=== PATIENT | female | born 2000 | race Caucasian/White ===

== ENCOUNTER 2021-02-25 03:11 | Emergency (ER) | payer OTHER ==
[~2021-02-25] VITALS: Ht 157.5 cm; Wt 81.7 kg
[2021-02-25] MEDS ORDERED: ONDANSETRON ODT8 MG PO (04:30)
== END 2021-02-25 05:22 | disposition home or self-care (01) ==
LOC: ED 03:11
DX: U07.1 COVID-19 (principal)
CPT/HCPCS: 96372; 99284; C9803; J1885; J2765; U0003